=== PATIENT | male | born 1930 | race Two or more races ===

== ENCOUNTER 2019-10-03 17:54 | Inpatient (IN) | payer OTHER ==
[2019-10-03] MEDS ORDERED: DANAZOL100 MG (19:46)
[2019-10-03] MEDS ORDERED: LUMIGAN2.5 M1 (19:46)
[2019-10-03] MEDS ORDERED: DORZOLAMIDE-TIM10 ML (19:46)
[2019-10-03] MEDS ORDERED: LEVO-T75 MCG (19:46)
[2019-10-03] MEDS ORDERED: PRAVASTATIN SOD20 MG (19:46)
[2019-10-03] MEDS ORDERED: ZESTORETIC 20-1 EACH (19:46)
[2019-10-03] MEDS ORDERED: ALLER-TEC10 MG (19:46)
[2019-10-03] MEDS ORDERED: FOLIC ACID1 MG (19:46)
[2019-10-03] MEDS ORDERED: STOOL SOFTENER50 MG (19:47)
[2019-10-03] MEDS ORDERED: DAFLONEX-XL 11300 MG (19:47)
[2019-10-03] MEDS ORDERED: RETACRIT10000 UNIT (19:47)
[2019-10-03] MEDS ORDERED: VERAPAMIL ER240 MG (19:47)
[2019-10-03] MEDS ORDERED: FINASTERIDE5 MG (19:47)
[2019-10-03] MEDS ORDERED: VITAMIN B-COMP1 EAC1 (19:47)
[2019-10-03] MEDS ORDERED: BENZONATATE100 MG (19:48)
[2019-10-03] MEDS ORDERED: PYRIDOXINE HCL100 MG (19:48)
== END 2019-10-06 14:29 | disposition home or self-care (01) | DRG 812 ==
LOC: SURH 17:54
PROVIDERS: ADMIT Internal Medicine Hematology & Oncology; ATTEND Internal Medicine Hematology & Oncology
PROC: 30233N1 Transfusion of Nonautologous Red Blood Cells into Peripheral Vein, Percutaneous Approach (ICD-10-PCS; principal; 2019-10-04)
DX: D64.9 Anemia, unspecified (principal); C22.0 Liver cell carcinoma; D70.8 Other neutropenia

== ENCOUNTER 2019-11-21 10:52 | Inpatient (IN) | payer OTHER ==
[~2019-11-21] VITALS: Ht 170.2 cm; Wt 68.0 kg
[~2019-11-21 10:52] MED LIST: ALLER-TEC10 MG; BENZONATATE100 MG; DAFLONEX-XL 11300 MG; DANAZOL100 MG; DORZOLAMIDE-TIM10 ML; FINASTERIDE5 MG; FOLIC ACID1 MG; LEVO-T75 MCG; LUMIGAN2.5 M1; PRAVASTATIN SOD20 MG; PYRIDOXINE HCL100 MG; RETACRIT10000 UNIT; STOOL SOFTENER50 MG; VERAPAMIL ER240 MG; VITAMIN B-COMP1 EAC1; ZESTORETIC 20-1 EACH
[2019-11-22] MEDS ORDERED: ZESTORETIC 20-1 EACH PO (12:21)
[2019-11-22] MEDS ORDERED: PRAVASTATIN SOD20 MG PO (12:22)
[2019-11-22] MEDS ORDERED: VERAPAMIL ER240 MG PO (12:22)
[2019-11-22] MEDS ORDERED: LEVO-T75 MCG PO (12:24)
[2019-11-22] MEDS ORDERED: FINASTERIDE5 MG PO (12:25)
[2019-11-22] MEDS ORDERED: VITAMIN B-COMP1 EAC1 PO (12:25)
== END 2019-11-22 13:26 | disposition home or self-care (01) | DRG 812 ==
LOC: MEDJ 10:52
PROVIDERS: ADMIT Internal Medicine Hematology & Oncology; ATTEND Internal Medicine Hematology & Oncology
PROC: 30233N1 Transfusion of Nonautologous Red Blood Cells into Peripheral Vein, Percutaneous Approach (ICD-10-PCS; principal; 2019-11-21)
PROC: 8E0ZXY6 Isolation (ICD-10-PCS; 2019-11-21)
DX: D46.A Refractory cytopenia with multilineage dysplasia (principal); D69.6 Thrombocytopenia, unspecified; I10 Essential (primary) hypertension; Z85.038 Personal history of other malignant neoplasm of large intestine; Z08 Encounter for follow-up examination after completed treatment for malignant neoplasm; Z85.05 Personal history of malignant neoplasm of liver; Z85.6 Personal history of leukemia

== ENCOUNTER 2019-12-17 17:19 | Inpatient (IN) | payer OTHER ==
[~2019-12-17] VITALS: Ht 175.3 cm; Wt 68.0 kg
[~2019-12-17 17:19] MED LIST changes: +FINASTERIDE5 MG PO; +LEVO-T75 MCG PO; +PRAVASTATIN SOD20 MG PO; +VERAPAMIL ER240 MG PO; +VITAMIN B-COMP1 EAC1 PO; +ZESTORETIC 20-1 EACH PO
[2019-12-18] MEDS ORDERED: PRAVASTATIN SOD20 MG PO (08:30)
[2019-12-18] MEDS ORDERED: PROMACTA50 MG PO (08:30)
[2019-12-18] MEDS ORDERED: WAL-ZYR10 MG PO (08:31)
[2019-12-18] MEDS ORDERED: DANAZOL100 MG PO (08:31)
[2019-12-18] MEDS ORDERED: LEVOTHYROXINE75 MCG PO (08:31)
[2019-12-18] MEDS ORDERED: LUMIGAN2.5 M1 (08:32)
[2019-12-18] MEDS ORDERED: CYTARABINE (08:32)
[2019-12-18] MEDS ORDERED: BETAMETHASONE V15 GM (08:32)
[2019-12-18] MEDS ORDERED: VITAMIN B-COMP1 EAC1 (08:32)
[2019-12-18] MEDS ORDERED: FINASTERIDE5 MG PO (08:33)
[2019-12-18] MEDS ORDERED: VERAPAMIL ER240 MG PO (08:33)
[2019-12-18] MEDS ORDERED: LISINOPRIL-HCT1 EACH PO (08:33)
[2019-12-18] MEDS ORDERED: DORZOLAMIDE-TIM10 ML (08:34)
[2019-12-19] MEDS ORDERED: APETIGEN L790 MG/15 PO (16:44)
[2019-12-19] MEDS ORDERED: COLACE100 MG PO (16:44)
== END 2019-12-19 16:59 | disposition home or self-care (01) | DRG 812 ==
LOC: SURH 17:19
PROVIDERS: ADMIT Internal Medicine Hematology & Oncology; ATTEND Internal Medicine Hematology & Oncology
PROC: 8E0ZXY6 Isolation (ICD-10-PCS; 2019-12-17)
PROC: 30233N1 Transfusion of Nonautologous Red Blood Cells into Peripheral Vein, Percutaneous Approach (ICD-10-PCS; principal; 2019-12-18)
DX: D46.20 Refractory anemia with excess of blasts, unspecified (principal); C22.0 Liver cell carcinoma; D46.A Refractory cytopenia with multilineage dysplasia; Z08 Encounter for follow-up examination after completed treatment for malignant neoplasm; Z85.038 Personal history of other malignant neoplasm of large intestine

== ENCOUNTER 2020-01-16 17:52 | Inpatient (IN) | payer OTHER ==
[~2020-01-16 17:52] MED LIST changes: +APETIGEN L790 MG/15 PO; +BETAMETHASONE V15 GM; +COLACE100 MG PO; +CYTARABINE; +DANAZOL100 MG PO; +LEVOTHYROXINE75 MCG PO; +LISINOPRIL-HCT1 EACH PO; +PROMACTA50 MG PO; +WAL-ZYR10 MG PO
[2020-01-18] MEDS ORDERED: WAL-ZYR10 MG PO (12:47)
[2020-01-18] MEDS ORDERED: PRAVASTATIN SOD20 MG PO (12:47)
[2020-01-18] MEDS ORDERED: PROMACTA50 MG PO (12:47)
[2020-01-18] MEDS ORDERED: LISINOPRIL-HCT1 EACH PO (12:47)
[2020-01-18] MEDS ORDERED: VERAPAMIL ER240 MG PO (12:48)
[2020-01-18] MEDS ORDERED: DORZOLAMIDE-TIM10 ML OPHT (12:49)
[2020-01-18] MEDS ORDERED: LUMIGAN2.5 M1 OPHT (12:49)
[2020-01-18] MEDS ORDERED: COLACE100 MG PO (12:49)
[2020-01-18] MEDS ORDERED: DANAZOL100 MG PO (12:50)
[2020-01-18] MEDS ORDERED: LEVOTHYROXINE75 MCG PO (12:50)
[2020-01-18] MEDS ORDERED: APETIGEN L790 MG/15 PO (12:51)
[2020-01-18] MEDS ORDERED: FINASTERIDE5 MG PO (12:51)
[2020-01-18] MEDS ORDERED: VITAMIN B-COMP1 EAC1 RECTAL (12:51)
[2020-01-18] MEDS ORDERED: BETAMETHASONE V15 GM TOP (12:51)
== END 2020-01-18 13:48 | disposition home or self-care (01) | DRG 813 ==
LOC: SURH 17:52
PROVIDERS: ADMIT Internal Medicine Hematology & Oncology; ATTEND Internal Medicine Hematology & Oncology
PROC: 30233N1 Transfusion of Nonautologous Red Blood Cells into Peripheral Vein, Percutaneous Approach (ICD-10-PCS; principal; 2020-01-17)
DX: D69.6 Thrombocytopenia, unspecified (principal); C22.0 Liver cell carcinoma; D70.8 Other neutropenia; D46.20 Refractory anemia with excess of blasts, unspecified; D46.A Refractory cytopenia with multilineage dysplasia; D52.0 Dietary folate deficiency anemia; N40.0 Benign prostatic hyperplasia without lower urinary tract symptoms; I10 Essential (primary) hypertension; E78.2 Mixed hyperlipidemia; E03.8 Other specified hypothyroidism; Z85.038 Personal history of other malignant neoplasm of large intestine; Z85.6 Personal history of leukemia; Z08 Encounter for follow-up examination after completed treatment for malignant neoplasm

== ENCOUNTER 2020-02-12 10:51 | Inpatient (IN) | payer OTHER ==
[~2020-02-12] VITALS: Ht 170.2 cm; Wt 68.0 kg
[~2020-02-12 10:51] MED LIST changes: +BETAMETHASONE V15 GM TOP; +DORZOLAMIDE-TIM10 ML OPHT; +LUMIGAN2.5 M1 OPHT; +VITAMIN B-COMP1 EAC1 RECTAL
== END 2020-02-13 17:37 | disposition home or self-care (01) | DRG 812 ==
LOC: MEDI 10:51 → SEC-K 10:51 → MEDI 14:19
PROVIDERS: ADMIT Internal Medicine Hematology & Oncology; ATTEND Internal Medicine Hematology & Oncology
PROC: 30233N1 Transfusion of Nonautologous Red Blood Cells into Peripheral Vein, Percutaneous Approach (ICD-10-PCS; principal; 2020-02-12)
DX: D46.20 Refractory anemia with excess of blasts, unspecified (principal); C22.0 Liver cell carcinoma; D46.A Refractory cytopenia with multilineage dysplasia; Z85.038 Personal history of other malignant neoplasm of large intestine; Z85.6 Personal history of leukemia; N40.1 Benign prostatic hyperplasia with lower urinary tract symptoms

== ENCOUNTER 2020-03-11 07:16 | Inpatient (IN) | payer OTHER ==
[~2020-03-11] VITALS: Ht 170.2 cm; Wt 68.0 kg
== END 2020-03-13 09:43 | disposition home or self-care (01) | DRG 812 ==
LOC: ER 07:16 → SEC-K 11:17 → MEDI 03-12 11:50
PROVIDERS: ADMIT Internal Medicine; ATTEND Internal Medicine
PROC: 30233N1 Transfusion of Nonautologous Red Blood Cells into Peripheral Vein, Percutaneous Approach (ICD-10-PCS; principal; 2020-03-11)
DX: D46.20 Refractory anemia with excess of blasts, unspecified (principal); C22.0 Liver cell carcinoma; D69.6 Thrombocytopenia, unspecified; E03.8 Other specified hypothyroidism; Z20.828 Contact with and (suspected) exposure to other viral communicable diseases

== ENCOUNTER 2020-04-08 07:11 | Inpatient (IN) | payer OTHER ==
[~2020-04-08] VITALS: Ht 170.2 cm; Wt 68.0 kg
--- NOTE | 2020-04-08 07:29 | NUR ---
SE RECIBE ALERTA Y ORIENTADO X3,REFIERE TENER LA HEMOGLOBINA BAJA ES PTE DE EL DR.MORALES MAHER ,EL CUAL LO REFIERE AL DR.BENEDICTO HUIZAR,TIENE HIPOTENCION.
--- NOTE | 2020-04-08 09:29 | NUR ---
PACIENTE ALERTA Y ORIENTADA POR JODI ESFERAS. SE ORIENTADA SOBRE PROCEDIMIENTO, REFIERE ENTENDER. SE EXTRAE MUESTRAS DE LABORATORIO CON MEDIAS ASEPTICAS Y SE ENVIA A LABORATORIO. SE COLOCA IVF'S CHELSIE ORDEN MEDICA. SE ENVIA A BANCO DE DM REQUISICION DE 2 UNIDADES DE PRBC'S EN HOLD. PACIENTE CON CONSENTIMIENTO FIRMADO.
--- NOTE | 2020-04-08 11:37 | NUR ---
SE REALIZA REQUSICION DE DM PARA 3 UNIDADES DE PRBC FRANCIONADAS PARA TRANFUNDIR. SE NOTIFICO A BANCO DE DM Y SE ENTREGO LA MISMA A SR. MCINTYRE DE BANCO DE DM. PACIENTE SE MANTIENE EN OBSERVACION PENDIENTE DE TRANFUNDIR UNIDADES FRACCCIONADAS.
== END 2020-04-11 14:38 | disposition home or self-care (01) | DRG 812 ==
LOC: ER 07:11 → MEDJ 12:43 → SEC-K 12:43 → MEDJ 15:56
PROVIDERS: ADMIT Internal Medicine; ATTEND Internal Medicine
PROC: 30233N1 Transfusion of Nonautologous Red Blood Cells into Peripheral Vein, Percutaneous Approach (ICD-10-PCS; principal; 2020-04-08)
DX: D64.89 Other specified anemias (principal); C22.0 Liver cell carcinoma; N40.1 Benign prostatic hyperplasia with lower urinary tract symptoms; E03.8 Other specified hypothyroidism; E78.2 Mixed hyperlipidemia; D70.8 Other neutropenia

== ENCOUNTER 2020-05-08 06:55 | Inpatient (IN) | payer OTHER ==
[~2020-05-08] VITALS: Ht 170.2 cm; Wt 65.8 kg
--- NOTE | 2020-05-08 07:36 | NUR ---
FAMILIAR REFIERE HMG BAJA SE TONY S/V Y SE UBICA EN AREA DE OBSERVACION
== END 2020-05-09 15:42 | disposition home or self-care (01) | DRG 812 ==
LOC: ER 06:55 → MEDJ 10:39
PROVIDERS: ADMIT Internal Medicine; ATTEND Internal Medicine
PROC: 30233N1 Transfusion of Nonautologous Red Blood Cells into Peripheral Vein, Percutaneous Approach (ICD-10-PCS; principal; 2020-05-08)
DX: D46.Z Other myelodysplastic syndromes (principal); D63.8 Anemia in other chronic diseases classified elsewhere; D69.6 Thrombocytopenia, unspecified; I10 Essential (primary) hypertension; E03.8 Other specified hypothyroidism; Z20.822 Contact with and (suspected) exposure to COVID-19; Z85.46 Personal history of malignant neoplasm of prostate; Z85.038 Personal history of other malignant neoplasm of large intestine

== ENCOUNTER 2020-06-03 15:54 | Inpatient (IN) | payer OTHER ==
[~2020-06-03] VITALS: Ht 170.2 cm; Wt 65.8 kg
[2020-06-04] MEDS ORDERED: MAXIMUM D3325 MCG (08:13)
[2020-06-04] MEDS ORDERED: MEGESTROL400 MG/10 (08:13)
== END 2020-06-05 13:35 | disposition home or self-care (01) | DRG 812 ==
LOC: MEDI 15:54
PROVIDERS: ADMIT Internal Medicine; ATTEND Internal Medicine
PROC: 30233N1 Transfusion of Nonautologous Red Blood Cells into Peripheral Vein, Percutaneous Approach (ICD-10-PCS; principal; 2020-06-03)
PROC: B24BYZZ Ultrasonography of Heart with Aorta using Other Contrast (ICD-10-PCS; 2020-06-03)
DX: D46.A Refractory cytopenia with multilineage dysplasia (principal); I31.3 Pericardial effusion (noninflammatory); I10 Essential (primary) hypertension; D69.6 Thrombocytopenia, unspecified

== ENCOUNTER 2020-06-14 04:19 | Inpatient (IN) | payer OTHER ==
[~2020-06-14] VITALS: Ht 170.2 cm; Wt 61.2 kg
[~2020-06-14 04:19] MED LIST changes: +MAXIMUM D3325 MCG; +MEGESTROL400 MG/10
== END 2020-06-19 09:51 | disposition expired | DRG 292 ==
LOC: ER 04:19 → ICU-2 10:44 → SEC-K 06-15 16:32 → MEDI 06-15 16:48
PROVIDERS: ADMIT Internal Medicine; ATTEND Internal Medicine
PROC: B24BZZZ Ultrasonography of Heart with Aorta (ICD-10-PCS; principal; 2020-06-14)
PROC: 02H633Z Insertion of Infusion Device into Right Atrium, Percutaneous Approach (ICD-10-PCS; 2020-06-14)
PROC: 30233N1 Transfusion of Nonautologous Red Blood Cells into Peripheral Vein, Percutaneous Approach (ICD-10-PCS; 2020-06-16)
PROC: 4A12X4Z Monitoring of Cardiac Electrical Activity, External Approach (ICD-10-PCS; 2020-06-16)
PROC: 5A09457 Assistance with Respiratory Ventilation, 24-96 Consecutive Hours, Continuous Positive Airway Pressure (ICD-10-PCS; 2020-06-17)
PROC: 4A033R1 Measurement of Arterial Saturation, Peripheral, Percutaneous Approach (ICD-10-PCS; 2020-06-17)
DX: I11.0 Hypertensive heart disease with heart failure (principal); C22.0 Liver cell carcinoma; I31.3 Pericardial effusion (noninflammatory); C93.10 Chronic myelomonocytic leukemia not having achieved remission; E87.2 Acidosis; E87.0 Hyperosmolality and hypernatremia; I50.33 Acute on chronic diastolic (congestive) heart failure; E03.8 Other specified hypothyroidism; Z66 Do not resuscitate; D69.6 Thrombocytopenia, unspecified; Z20.822 Contact with and (suspected) exposure to COVID-19; D63.0 Anemia in neoplastic disease; Z74.01 Bed confinement status